=== PATIENT | male | born 1975 | race Asian ===

== ENCOUNTER 2017-07-06 06:54 | Emergency (ER) | payer SELFPAY ==
[2017-07-06] MEDS ORDERED: Morphine INJ* 4 MG/ML 1 ML CARPUJECT IV ONE (07:25)
[2017-07-06] MEDS ORDERED: Lidocaine 2% EPI 1:200000 MPF* 20 ML VIAL ONE (07:38)
[2017-07-06 08:03] LABS: ABS Basophils 0.1 10^3/ul (0-0.2); ABS Eosinophils 0.1 10^3/ul (0-0.6); ABS Lymphocytes 2.4 10^3/ul (1.0-4.8); ABS Monocytes 0.9 10^3/ul (0-0.8); ABS Neutrophils 14.7 10^3/ul (1.5-7.7); ABS Nucleated RBC 0 10^3/ul; Eosinophil % 0.5 % (0-6); Hematocrit 34 % (42-52); Lymphocyte % 13.3 % (25-47); Mean Corpuscular HGB Conc 35 g/dl (31-36); Mean Corpuscular Hemoglobin 35 pg (27-31); Mean Corpuscular Volume 101 fL (80-94); Mean Platelet Volume 8 um3 (7.4-10.4); Nucleated Red Blood Cells % 0; Platelet Count 260 10^3/ul (150-450); Red Blood Count 3.41 10^6/ul (4.0-5.4); Red Cell Distribution Width 12 % (10.5-15); White Blood Count 18.3 10^3/ul (3.5-10.8)
[2017-07-06] MEDS ORDERED: Tetan/Diph/Pertus SYR(Tdap)* 0.5 ML SYR(BOOSTRIX) use SYR IM ONE (08:25)
[2017-07-06] MEDS ORDERED: cefTRIAXone(*) 1 GM in NS 0.9% 50 ML* 50 ML IVPB ONE (08:25)
[2017-07-06 08:28] LABS: EGFR Non-African American 71.1 (>60)
[2017-07-06] MEDS ORDERED: Iohexol 350* (CONTRAST) 500 ML MDV IV ONE ×2 (08:31→09:52)
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
[2017-07-06] MEDS ORDERED: Ondansetron INJ* 2 MG/ML VIAL ONE (09:13)
[2017-07-06] MEDS ORDERED: Ondansetron INJ* 2 MG/ML VIAL IV ONE (09:44)
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
[2017-07-06 13:22] LABS: Urine Appearance Clear; Urine Blood 1+ (Negative); Urine Color Yellow; Urine Ketones Negative (Negative); Urine Protein 2+(100 mg/dL) (Negative); Urine Urobilinogen Negative (Negative)
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
[2017-07-06 14:41] VITALS: BP 130/72
== END 2017-07-06 14:06 | disposition short-term general hospital (02) ==
LOC: ED 06:54
DX: S51.012A Laceration without foreign body of left elbow, initial encounter (principal); S51.812A Laceration without foreign body of left forearm, initial encounter; W26.0XXA Contact with knife, initial encounter; Y92.9 Unspecified place or not applicable
CPT/HCPCS: 12002; 36415; 80053; 80307; 80320; 80329; 81003; 81015; 84443; 85025; 90471; 90715; 96374; 96375; 99284; G0480; J0696; J2270; J2405; Q9967